=== PATIENT | male | born 1990 | race Caucasian/White ===

== ENCOUNTER 2019-02-17 15:29 | Emergency (ER) | payer OTHER ==
[2019-02-17] MEDS ORDERED: METHOCARBAMOL 500 MG TABLET PO ONE (17:23)
[2019-02-17] MEDS ORDERED: HYDROCODONE/ACETAMINOPHEN 5-325 MG TABLET PO ONE (17:23)
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
--- NOTE | 2019-02-17 18:24 | RADIOLOGY REPORT (SQ) ---
EXAM DESCRIPTION: RIBS LEFT W/PA CHEST COMPLETED DATE/TIME: 02/17/2019 5:54 pm REASON FOR STUDY: left rib pain COMPARISON: None. TECHNIQUE: Frontal view of the chest and additional views of the left ribs acquired. NUMBER OF VIEWS: Three view. LIMITATIONS: None. FINDINGS: FRONTAL CXR: Linear left basilar opacity. No pleural effusion. No pneumothorax. RIBS: No displaced rib fractures. No lytic or blastic bony lesions. OTHER: No other significant finding. IMPRESSION: Linear left basilar opacity possibly atelectasis or contusion. No pneumothorax. No dis placed rib fracture. COMMENT: SITE OF TRAUMA/COMPLAINT MARKED/STAMP COMPLETED: NO. TECHNICAL DOCUMENTATION: JOB ID: [id number] [employer]- All Rights Reserved Reading location - IP/workstation name: [email or web address]
[2019-02-17] MEDS ORDERED: HYDROCODONE/ACETAMINOPHEN 5-325 MG (6 TAB/ER DISP) PO SCH (18:30)
[2019-02-17 18:47] VITALS: BP 171/87
== END 2019-02-17 18:50 | disposition home or self-care (01) ==
LOC: ER 15:29
DX: J98.11 Atelectasis (principal); R07.81 Pleurodynia; S00.11XA Contusion of right eyelid and periocular area, initial encounter; V49.9XXA Car occupant (driver) (passenger) injured in unspecified traffic accident, initial encounter; I10 Essential (primary) hypertension; Z72.0 Tobacco use
CPT/HCPCS: 99283